=== PATIENT | female | born 1990 | race Two or more races ===

== ENCOUNTER 2017-09-23 11:21 | Inpatient (IN) | payer MEDICAID ==
[~2017-09-23] VITALS: Ht 172.7 cm; Wt 62.6 kg
--- NOTE | 2017-09-23 12:01 | Emergency Room Report ---
History of Present Illness General Chief Complaint: Fever Source: Patient Present Illness HPI 27-year-old female presenting with fever chills cough abdominal pain. Patient states that she had a MAXIMUM TEMPERATURE of 104. Aleve. Also had one episode vomiting. Also complaining of right upper quadrant pain. Sharp. Intermittent. Also has had a nonproductive cough. No sick contacts or recent travel Allergies: Coded Allergies: No Known Allergies (Unverified , 09/23/17) Patient History Past Medical History: see triage record Past Surgical History: none Pertinent Family History: none Last Menstrual Period: 09/16/17 Now: No : 1 Para: 1 Reviewed Nursing Documentation: PMH: Agreed, PSxH: Agreed Nursing Documentation-PMH Past Medical History: No Stated History Review of Systems All Other Systems: negative except mentioned in HPI Physical Exam Vital Signs Date Time Temp Pulse Resp B/P (MAP) Pulse Ox O2 Delivery O2 Flow Rate FiO2 09/23/17 11:26 102.6 125 20 112/66 96 Room Air 102.6 Sp02 EP Interpretation: reviewed, normal General Appearance: alert, GCS 15, non-toxic, mild distress Head: normocephalic, atraumatic Eyes: bilateral eye normal inspection, bilateral eye PERRL, bilateral eye EOMI ENT: normal ENT inspection, normal pharynx, normal voice, moist mucus membranes Neck: normal inspection, full range of motion, supple Respiratory: normal inspection, lungs clear, normal breath sounds, no respiratory distress, no retraction, no wheezing, speaking full sentences, chest symmetrical Cardiovascular #1: normal inspection, regular rate, rhythm, no edema, normal capillary refill Cardiovascular #2: 2+ radial (R), 2+ radial (L) Gastrointestinal: other - ruq tenderness no guarding or rebound no other abd tenderness Musculoskeletal: normal inspection, back normal, normal range of motion, non- tender Neurologic: normal inspection, alert, oriented x3, responsive, motor strength/ tone normal, sensory intact, normal gait, speech normal Psychiatric: normal inspection, judgement/insight normal, memory normal Skin: normal inspection, normal color, no rash, warm/dry, well hydrated, normal turgor Medical Decision Making Diagnostic Impression: Primary Impression: Fever Additional Impressions: Cholelithiasis URI (upper respiratory infection) Intractable abdominal pain ER Course 27-year-old female with abdominal pain fever, cough Differential Diagnosis: Gastritis, gastroenteritis, cholecystitis, UTI/pyelo Plan: Basic labs, ua, sonogram, x-ray ER course: Patient has remained stable during ED stay. Right upper quadrant sonogram performed - stones, no signs cholecystitis labs - no LFT elevation patients fever improved continues to have intractable abd pain, given 2 doses morphine Disposition: Patient is to be admitted to med surg DW Dr Garcia who is covering for Dr Ceron Please note that this Emergency Department Report was dictated using [employer] technology software, occasionally this can lead to erroneous entry secondary to interpretation by the dictation equipment Rhythm Strip EP Interpretation: Yes Rate: 97 Rhythm: NSR, no PVCs, no ectopy Chest X-ray CXR: Ordered: Yes 1 view Indication: Cough EP interpretation: Yes Interpretation: No consolidation, no effusion, no PTX, no acute cardiopulmonary disease Impression: No acute disease Electronically signed by Farnaz Fisher MD Laboratory Tests Test 09/23/17 12:03 09/23/17 12:15 Urine Color Yellow Urine Appearance Clear Urine pH 6 (4.5-8.0) Urine Specific [place] 1.010 (1.005-1.035) Urine Protein 1+ (NEGATIVE) H Urine Glucose (UA) Negative (NEGATIVE) Urine Ketones 2+ (NEGATIVE) H Urine Occult Blood Negative (NEGATIVE) Urine Nitrite Negative (NEGATIVE) Urine Bilirubin Negative (NEGATIVE) Urine Urobilinogen Normal MG/DL (0.0-1.0) Urine Leukocyte Esterase 1+ (NEGATIVE) H Urine RBC 0-2 /HPF (0 - 2) Urine WBC 2-4 /HPF (0 - 2) Urine Squamous Epithelial Cells Few /LPF (NONE/OCC) Urine Bacteria Few /HPF (NONE) Urine HCG, Qualitative Negative (NEGATIVE) White Blood Count 5.2 K/UL (4.8-10.8) Red Blood Count 5.09 M/UL (4.20-5.40) Hemoglobin 15.0 G/DL (12.0-16.0) Hematocrit 44.4 % (37.0-47.0) Mean Corpuscular Volume 87 FL (80-99) Mean Corpuscular Hemoglobin 29.4 PG (27.0-31.0) Mean Corpuscular Hemoglobin Concent 33.8 G/DL (32.0-36.0) Red Cell Distribution Width 11.5 % (11.6-14.8) L Platelet Count 226 K/UL (150-450) Mean Platelet Volume 7.2 FL (6.5-10.1) Neutrophils (%) (Auto) 82.6 % (45.0-75.0) H Lymphocytes (%) (Auto) 5.1 % (20.0-45.0) L Monocytes (%) (Auto) 10.4 % (1.0-10.0) H Eosinophils (%) (Auto) 0.0 % (0.0-3.0) Basophils (%) (Auto) 1.8 % (0.0-2.0) Sodium Level 138 MMOL/L (136-145) Potassium Level 4.0 MMOL/L (3.5-5.1) Chloride Level 103 MMOL/L (98-107) Carbon Dioxide Level 26 MMOL/L (21-32) Anion Gap 9 mmol/L (5-15) Blood Urea Nitrogen 7 mg/dL (7-18) Creatinine 1.0 MG/DL (0.55-1.30) Estimate Glomerular Filtration Rate > 60 mL/min (>60) Glucose Level 110 MG/DL (74-106) H Calcium Level 8.7 MG/DL (8.5-10.1) Total Bilirubin 0.3 MG/DL (0.2-1.0) Aspartate Amino Transferase (AST) 22 U/L (15-37) Alanine Aminotransferase (ALT) 21 U/L (12-78) Alkaline Phosphatase 83 U/L (46-116) Total Protein 8.0 G/DL (6.4-8.2) Albumin 4.0 G/DL (3.4-5.0) Globulin 4.0 g/dL Albumin/Globulin Ratio 1.0 (1.0-2.7) Lipase 174 U/L (73-393) CT/MRI/US Diagnostic Results CT/MRI/US Diagnostic Results : Imaging Test Ordered: US gallbladder Impression Findings: Gallbladder demonstrates a large stone in the neck. The wall is not thickened and there is no pericholecystic fluid. However, technologist reports sonographic Campbell's sign as being positive. Common bile duct measures 3 mm in diameter. No intrahepatic biliary ductal dilatation. Liver demonstrates normal echogenicity, no focal abnormality. Portal vein and hepatic veins are patent. Pancreas is unremarkable. Spleen is unremarkable. Left kidney measures 10.3 cm in length. Right kidney measures 11.5 cm length. Both kidneys demonstrate normal echogenicity. There is no hydronephrosis. Left kidney demonstrates a small cyst . Non-aneurysmal abdominal aorta . Impression: Cholelithiasis. Positive sonographic Campbell's sign raises concern for acute cholecystitis. Consider nuclear medicine hepatobiliary scan for further evaluation Negative for dilated ducts Incidental findings small left renal cyst Last Vital Signs Date Time Temp Pulse Resp B/P (MAP) Pulse Ox O2 Delivery O2 Flow Rate FiO2 09/23/17 11:26 102.6 125 20 112/66 96 Room Air 102.6 Disposition: ADMITTED INPATIENT Condition: Serious Scripts Acetaminophen* (ACETAMINOPHEN EXTRA STRENGTH*) 500 Mg Tablet 500 MG ORAL Q8H Y for Fever/Headache/Mild Pain, #30 TAB Prov: Farnaz Fisher M.D. 09/23/17 Farnaz Fisher M.D. Sep 23, 2017 12:00
[2017-09-23 12:13] LABS: APPEARANCE,URINE CLEAR; BILIRUBIN, URINE NEGATIVE (NEGATIVE); GLUCOSE, URINE (UA) NEGATIVE (NEGATIVE); KETONES,URINE 2+ (NEGATIVE); LEUKOCYTE ESTERASE ,URINE 1+ (NEGATIVE); NITRITE,URINE NEGATIVE (NEGATIVE); PH,URINE 6 (4.5-8.0); PROTEIN,URINE 1+ (NEGATIVE); UROBILINOGEN,URINE NORMAL MG/DL (0.0-1.0)
[2017-09-23 12:15] LABS: COLOR,URINE YELLOW
[2017-09-23 12:17] VITALS: BP 112/66
[2017-09-23] MEDS ORDERED: Morphine Sulfate 4mg/ml Inj IVP ONE ×2 (12:45→13:30)
[2017-09-23 13:16] LABS: BASOPHILS % (AUTO) 1.8 % (0.0-2.0); HEMATOCRIT 44.4 % (37.0-47.0); LYMPHOCYTES % (AUTO) 5.1 % (20.0-45.0); MEAN CORPUSCULAR VOLUME 87 FL (80-99); MONOCYTES % (AUTO) 10.4 % (1.0-10.0); NEUTROPHILS % (AUTO) 82.6 % (45.0-75.0); PLATELET COUNT 226 K/UL (150-450); RED BLOOD COUNT 5.09 M/UL (4.20-5.40); RED CELL DISTRIBUTION WIDTH 11.5 % (11.6-14.8); WHITE BLOOD COUNT 5.2 K/UL (4.8-10.8)
[2017-09-23] MEDS ORDERED: ACETAMINOPHEN500 M3 ORAL (13:29)
[2017-09-23 13:39] LABS: ANION GAP 9 mmol/L (5-15); BLOOD UREA NITROGEN 7 mg/dL (7-18); CALCIUM 8.7 MG/DL (8.5-10.1); CARBON DIOXIDE 26 MMOL/L (21-32); CHLORIDE 103 MMOL/L (98-107); SODIUM 138 MMOL/L (136-145)
[2017-09-23 13:43] LABS: ALANINE AMINOTRANSFERASE 21 U/L (12-78); ALKALINE PHOSPHATASE 83 U/L (46-116); ASPARTATE AMINO TRANSFERASE 22 U/L (15-37); BILIRUBIN,TOTAL 0.3 MG/DL (0.2-1.0)
--- NOTE | 2017-09-23 13:57 | Diagnostic Imaging Report ---
Indication: Metacarpal pain, nausea, vomiting Technique: Wright-scale and duplex images of the upper abdomen were obtained Comparison: none Findings: Gallbladder demonstrates a large stone in the neck. The wall is not thickened and there is no pericholecystic fluid. However, technologist reports sonographic Campbell's sign as being positive. Common bile duct measures 3 mm in diameter. No intrahepatic biliary ductal dilatation. Liver demonstrates normal echogenicity, no focal abnormality. Portal vein and hepatic veins are patent. Pancreas is unremarkable. Spleen is unremarkable. Left kidney measures 10.3 cm in length. Right kidney measures 11.5 cm length. Both kidneys demonstrate normal echogenicity. There is no hydronephrosis. Left kidney demonstrates a small cyst . Non-aneurysmal abdominal aorta . Impression: Cholelithiasis. Positive sonographic Campbell's sign raises concern for acute cholecystitis. Consider nuclear medicine hepatobiliary scan for further evaluation Negative for dilated ducts Incidental findings small left renal cyst
[2017-09-23] MEDS ORDERED: Mylanta II UD 30ml ORAL PRN (14:15)
[2017-09-23] MEDS ORDERED: Acetaminophen 650 MG SUPP RECTAL PRN (14:15)
[2017-09-23] MEDS ORDERED: Milk of Magnesia 30ml Ud ORAL PRN (14:15)
[2017-09-23] MEDS ORDERED: Morphine Sulfate 2mg/ml Inj IVP PRN (14:15)
[2017-09-23 14:16] VITALS: BP 109/61
--- NOTE | 2017-09-23 14:29 | Emergency Room Report ---
History of Present Illness General Chief Complaint: Fever Source: Patient Present Illness Allergies: Coded Allergies: No Known Allergies (Unverified , 09/23/17) Patient History Last Menstrual Period: 09/16/17 Now: No : 1 Para: 1 Nursing Documentation-[facility] Past Medical History: No Stated History Physical Exam Vital Signs Date Time Temp Pulse Resp B/P (MAP) Pulse Ox O2 Delivery O2 Flow Rate FiO2 09/23/17 11:26 102.6 125 20 112/66 96 Room Air 102.6 Medical Decision Making Diagnostic Impression: Primary Impression: Fever Additional Impressions: URI (upper respiratory infection) Intractable abdominal pain Cholelithiasis ER Course 27-year-old female signed out to me by Dr. Fisher Official sonogram shows large stone in neck of gallbladder However no pericholecystic fluid, no wall thickening Positive sonographic Campbell's Coags, type and screen sent Given dose of Zosyn antibiotic Dr. Hopper consult for possible cholecystitis at 230pm Last Vital Signs Date Time Temp Pulse Resp B/P (MAP) Pulse Ox O2 Delivery O2 Flow Rate FiO2 09/23/17 14:16 98.7 81 16 109/61 96 Room Air 98.7 Status: improved Disposition: ADMITTED INPATIENT Condition: Serious Scripts Acetaminophen* (ACETAMINOPHEN EXTRA STRENGTH*) 500 Mg Tablet 500 MG ORAL Q8H Y for Fever/Headache/Mild Pain, #30 TAB Prov: Farnaz Fisher M.D. 09/23/17 Patient Instructions: Upper Respiratory Infection, Adult, [id number], Cholelithiasis, [id number], Fever, Adult, [id number] NACHO LUIS M.D. Sep 23, 2017 14:29
--- NOTE | 2017-09-23 14:50 | GI Initial Consult Note ---
History of Present Illness General Date patient seen: Sep 23, 2017 Time patient seen: 14:38 Reason for Hospitalization: Fever Referring physician: GHASSAN GIMENEZ Reason for Consultation: ABDOMINAL PAIN Present Illness HPI 27-year-old female presenting with fever chills cough abdominal pain. Patient states that she had a MAXIMUM TEMPERATURE of 104. Aleve. Also had one episode vomiting. Also complaining of right upper quadrant pain. Sharp. Intermittent. Also has had a nonproductive cough. No sick contacts or recent travel. GI consulted for abdominal pain. Pt seen in ED alongside primary team. Awake , A&Ox4 NAD with no active s/sx of N/V/D. Reported one ep of emesis this morning, denied any hematemesis or coffee grounds. RUQ abdominal pain, with tenderness, positive Campbell's sign. Tolerable pain at this time. Denies tobacco/ETOH/IVDA drug use. HCG negative. Abdominal U/S reviewed >> Cholelithiasis. Positive sonographic Campbell's sign raises concern for acute cholecystitis. Negative for dilated ducts. Incidental findings small left renal cyst. Patient now pending HIDA. Labs revealed shows elevated neutrophil count, otherwise unremarkable. VSS. Home Meds Active Scripts Acetaminophen* (ACETAMINOPHEN EXTRA STRENGTH*) 500 Mg Tablet, 500 MG ORAL Q8H Y for Fever/Headache/Mild Pain, #30 TAB Prov:Farnaz Fisher M.D. 09/23/17 Med list reviewed/reconciled: Yes Allergies: Coded Allergies: No Known Allergies (Unverified , 09/23/17) Patient History History Provided By: Patient PMH Narrative denies any Social History: Denies: smoking, alcohol use, drug use, other Review of Systems All Other Systems: negative except mentioned in HPI Physical Exam Vital Signs Date Time Temp Pulse Resp B/P (MAP) Pulse Ox O2 Delivery O2 Flow Rate FiO2 09/23/17 11:26 102.6 125 20 112/66 96 Room Air 102.6 Sp02 EP Interpretation: reviewed, normal Labs Laboratory Tests Test 09/23/17 12:03 09/23/17 12:15 Urine Color Yellow Urine Appearance Clear Urine pH 6 (4.5-8.0) Urine Specific [place] 1.010 (1.005-1.035) Urine Protein 1+ (NEGATIVE) H Urine Glucose (UA) Negative (NEGATIVE) Urine Ketones 2+ (NEGATIVE) H Urine Occult Blood Negative (NEGATIVE) Urine Nitrite Negative (NEGATIVE) Urine Bilirubin Negative (NEGATIVE) Urine Urobilinogen Normal MG/DL (0.0-1.0) Urine Leukocyte Esterase 1+ (NEGATIVE) H Urine RBC 0-2 /HPF (0 - 2) Urine WBC 2-4 /HPF (0 - 2) Urine Squamous Epithelial Cells Few /LPF (NONE/OCC) Urine Bacteria Few /HPF (NONE) Urine HCG, Qualitative Negative (NEGATIVE) White Blood Count 5.2 K/UL (4.8-10.8) Red Blood Count 5.09 M/UL (4.20-5.40) Hemoglobin 15.0 G/DL (12.0-16.0) Hematocrit 44.4 % (37.0-47.0) Mean Corpuscular Volume 87 FL (80-99) Mean Corpuscular Hemoglobin 29.4 PG (27.0-31.0) Mean Corpuscular Hemoglobin Concent 33.8 G/DL (32.0-36.0) Red Cell Distribution Width 11.5 % (11.6-14.8) L Platelet Count 226 K/UL (150-450) Mean Platelet Volume 7.2 FL (6.5-10.1) Neutrophils (%) (Auto) 82.6 % (45.0-75.0) H Lymphocytes (%) (Auto) 5.1 % (20.0-45.0) L Monocytes (%) (Auto) 10.4 % (1.0-10.0) H Eosinophils (%) (Auto) 0.0 % (0.0-3.0) Basophils (%) (Auto) 1.8 % (0.0-2.0) Sodium Level 138 MMOL/L (136-145) Potassium Level 4.0 MMOL/L (3.5-5.1) Chloride Level 103 MMOL/L (98-107) Carbon Dioxide Level 26 MMOL/L (21-32) Anion Gap 9 mmol/L (5-15) Blood Urea Nitrogen 7 mg/dL (7-18) Creatinine 1.0 MG/DL (0.55-1.30) Estimat Glomerular Filtration Rate > 60 mL/min (>60) Glucose Level 110 MG/DL (74-106) H Calcium Level 8.7 MG/DL (8.5-10.1) Total Bilirubin 0.3 MG/DL (0.2-1.0) Aspartate Amino Transf (AST/SGOT) 22 U/L (15-37) Alanine Aminotransferase (ALT/SGPT) 21 U/L (12-78) Alkaline Phosphatase 83 U/L (46-116) Total Protein 8.0 G/DL (6.4-8.2) Albumin 4.0 G/DL (3.4-5.0) Globulin 4.0 g/dL Albumin/Globulin Ratio 1.0 (1.0-2.7) Lipase 174 U/L (73-393) General Appearance: well appearing, no apparent distress, alert Head: normocephalic EENT: PERRL/EOMI, normal ENT inspection Neck: supple Respiratory: normal breath sounds, no respiratory distress Cardiovascular: normal rate Gastrointestinal: normal inspection, non tender, soft, normal bowel sounds, non -distended Rectal: deferred Genitourinary: no CVA tenderness Musculoskeletal: normal inspection, back normal Neurologic: normal inspection, alert, oriented x3, responsive Psychiatric: normal inspection, judgement/insight normal, memory normal Skin: normal inspection, normal color, no rash, warm/dry, palpation normal, well hydrated Lymphatic: normal inspection, no adenopathy Current Medications Current Medications Medications (Trade) Dose Ordered Sig/Saul Route PRN Reason Start Time Stop Time Status Last Admin Dose Admin Acetaminophen (Tylenol) 650 mg Q4H PRN ORAL Mild Pain (Pain Scale 1-3) 09/23/17 14:15 10/23/17 14:14 UNV Acetaminophen (Tylenol) 650 mg Q4H PRN ORAL fever 09/23/17 14:15 10/23/17 14:14 UNV Acetaminophen (Tylenol) 650 mg Q4H PRN RECTAL fever 09/23/17 14:15 10/23/17 14:14 UNV Al Hydroxide/Mg Hydroxide (Mylanta II) 30 ml Q6H PRN ORAL dyspepsia 09/23/17 14:15 10/23/17 14:14 UNV Bisacodyl (Dulcolax) 10 mg HSPRN PRN RECTAL Constipation 09/23/17 14:15 10/23/17 14:14 UNV Dextrose (Dextrose 50%) STAT PRN IV Hypoglycemia 09/23/17 14:15 10/23/17 14:14 UNV Dextrose/ Electrolytes 1,000 ml @ 125 mls/hr Q8H IV 09/23/17 15:11 10/23/17 15:10 UNV Diphenhydramine HCl (Benadryl) 25 mg Q6H PRN ORAL Itching/Pruritis 09/23/17 14:15 10/23/17 14:14 UNV Docusate Sodium (Colace) 100 mg EVERY 12 HOURS ORAL 09/23/17 21:00 10/23/17 20:59 UNV Heparin Sodium (Porcine) (Heparin 5000 units/ml) 5,000 units EVERY 12 HOURS SUBQ 09/23/17 21:00 10/23/17 20:59 UNV Magnesium Hydroxide (Mom) 30 ml HSPRN PRN ORAL Constipation 09/23/17 14:15 10/23/17 14:14 UNV Morphine Sulfate (Morphine Sulfate) 2 mg Q3H PRN IVP Moderate Pain (Pain Scale 4-6) 09/23/17 14:15 09/30/17 14:14 UNV Morphine Sulfate (Morphine Sulfate) 4 mg Q3H PRN IVP Severe Pain (Pain Scale 7-10) 09/23/17 14:15 09/30/17 14:14 UNV Ondansetron HCl (Zofran) 4 mg Q6H PRN IVP Nausea & Vomiting 09/23/17 14:15 10/23/17 14:14 UNV Pantoprazole (Protonix) 40 mg DAILY IV 09/24/17 09:00 10/24/17 08:59 UNV Piperacillin Sod/ Tazobactam Sod 3.375 gm/Sodium Chloride 110 ml @ 220 mls/hr Q6H IVPB 09/23/17 14:30 09/30/17 14:29 UNV Zolpidem Tartrate (Ambien) 5 mg HSPRN PRN ORAL Insomnia 09/23/17 14:15 09/30/17 14:14 UNV GI: Plan Problems: (1) Cholelithiasis (2) Intractable abdominal pain (3) Biliary colic Plan abdominal U/S reviewed >> - Cholelithiasis. Gallbladder demonstrates a large stone in the neck. - Positive sonographic Campbell's sign raises concern for acute cholecystitis. - negative for dilated ducts LFTs WNL HCG negative fu HIDA scan maintain NPO + IVFs ppi pain mgmt zofran prn fu surgical recs for possible cholecystectomy. Discussed with Dr. Escalante. Thank you for this patient referral, we will follow. Rica Rollins N.P. Sep 23, 2017 14:50
--- NOTE | 2017-09-23 15:14 | Diagnostic Imaging Report ---
Indication: Reason For Exam: COUGH Technique: One view of the chest Comparison: none Findings: Lungs and pleural spaces are clear. Heart size is normal Impression: No acute process
[2017-09-23] MEDS ORDERED: D5 1/2NS w/KCl 20mEq 1,000 ML IV SCH (16:30)
[2017-09-23] MEDS: Morphine Sulfate 4mg/ml Inj IVP PRN ×2 (17:28→21:07)
[2017-09-23] MEDS ORDERED: Morphine Sulfate 2mg/ml Inj IVP ONE (17:30)
[2017-09-23] MEDS ORDERED: Zosyn 3.375gm inj ONE ×2 (17:49→23:41)
[2017-09-23] MEDS: Piperacillin/Tazobactam 3.375 GM in NS 110 ML IVPB SCH ×2 (17:50→23:47)
[2017-09-23] MEDS ORDERED: IBUPROFEN600 MG ORAL (18:02)
[2017-09-23] MEDS: D5 1/2NS w/KCl 20mEq 1,000 ML IV SCH (19:57)
[2017-09-23 20:56] VITALS: BP 110/72
[2017-09-23] MEDS ORDERED: Heparin 5000 units/ml inj SUBQ SCH (21:00)
[2017-09-23] MEDS: Docusate 100mg cap ORAL SCH (21:00)
--- NOTE | 2017-09-23 21:01 | Consultation ---
DATE OF CONSULTATION: 09/23/2017 PREOPERATIVE CONSULTATION CONSULTING PHYSICIAN: Stella Hopper M.D. REQUESTING PHYSICIAN: ER physician. REASON FOR CONSULTATION: Abdominal pain. HISTORY OF PRESENT ILLNESS: This is a 27-year-old female who presented with abdominal pain since this morning. The pain is located at right upper quadrant, crampy with radiation to her back. It has been associated with nausea and vomiting. She claimed that since last night, she has been having fever. She had a mild cough. She denied dysuria or frequency. She denied diarrhea. She claims that she has been having pain at the right upper quadrant of the abdomen off and on in the last three years, especially after exercise and after eating greasy food. She denies any history of jaundice. PAST MEDICAL HISTORY: She denies allergies, asthma, diabetes, hypertension, cardiac or renal diseases. PAST SURGICAL HISTORY: x1. MEDICATIONS: None. SOCIAL HISTORY: The patient is a 27-year-old, female, single, mother of one child. She works as a nanny. Denies smoking and drinking. REVIEW OF SYSTEMS: Noncontributory. PHYSICAL EXAMINATION: GENERAL: The patient appeared to be well-developed and well-nourished, 27-year-old, female, lying on the gurney, complaining of abdominal pain. HEENT: Head is normocephalic and atraumatic. Eyes, pupils are equal, round, and reactive to light. Mouth is clear. NECK: There is no palpable thyromegaly or adenopathy. CHEST: Clear to auscultation and percussion. HEART: There is no gallop or murmur. S1 and S2 are within normal limits. ABDOMEN: Soft and flat with tenderness at right upper quadrant. There is no palpable organomegaly and bowel sounds are audible. She has a scar of the transverse suprapubic incision. GENITAL: Normal. EXTREMITIES: Within normal limits. LABORATORY AND DIAGNOSTIC DATA: CBC has shown WBCs with mild left shift. Chemistry is within normal limits. Total bilirubin is 0.3, alkaline phosphatase 83. Ultrasound of the abdomen has shown large stone impacted in the neck of the gallbladder. ASSESSMENT: Cholecystitis and cholelithiasis. PLAN: The patient will be admitted to hospital and being started on conservative treatment. If she continues having pain, she will undergo laparoscopy cholecystectomy, possible open cholecystectomy. This has been explained to the patient. She understood and agreed. Stella Hopper M.D. DR: OLAYINKA JOB#: [id number] CC:
[2017-09-23] MEDS: Zolpidem 5mg tab ORAL PRN (22:38)
[2017-09-24] VITALS (18 sets, daily range): BP systolic 94–115; BP diastolic 52–75
[2017-09-24] MEDS: Morphine Sulfate 4mg/ml Inj IVP PRN ×4 (00:38→14:18)
[2017-09-24] MEDS: D5 1/2NS w/KCl 20mEq 1,000 ML IV SCH ×3 (05:52→22:03)
[2017-09-24 07:36] LABS: BASOPHILS % (AUTO) 1.3 % (0.0-2.0); HEMATOCRIT 40.9 % (37.0-47.0); HEMOGLOBIN 13.8 G/DL (12.0-16.0); LYMPHOCYTES % (AUTO) 17.3 % (20.0-45.0); MEAN CORPUSCULAR VOLUME 89 FL (80-99); MONOCYTES % (AUTO) 9.7 % (1.0-10.0); NEUTROPHILS % (AUTO) 71.7 % (45.0-75.0); PLATELET COUNT 186 K/UL (150-450); RED BLOOD COUNT 4.61 M/UL (4.20-5.40); RED CELL DISTRIBUTION WIDTH 11.9 % (11.6-14.8); WHITE BLOOD COUNT 4.2 K/UL (4.8-10.8)
[2017-09-24 07:44] LABS: ALANINE AMINOTRANSFERASE 21 U/L (12-78); ALBUMIN 3.3 G/DL (3.4-5.0); ALBUMIN/GLOBULIN RATIO 0.9 (1.0-2.7); ALKALINE PHOSPHATASE 70 U/L (46-116); ANION GAP 7 mmol/L (5-15); ASPARTATE AMINO TRANSFERASE 25 U/L (15-37); BILIRUBIN,TOTAL 0.2 MG/DL (0.2-1.0); BLOOD UREA NITROGEN 7 mg/dL (7-18); CALCIUM 7.8 MG/DL (8.5-10.1); CARBON DIOXIDE 26 MMOL/L (21-32); CHLORIDE 106 MMOL/L (98-107); CREATININE 0.9 MG/DL (0.55-1.30); POTASSIUM 4.3 MMOL/L (3.5-5.1); SODIUM 139 MMOL/L (136-145)
[2017-09-24] MEDS ORDERED: Glycopyrrolate 0.2mg/ml 1ml Vial ONE (08:00)
[2017-09-24] MEDS ORDERED: Sterile Water Irrig 1000ml IRRIG ONE (08:00)
[2017-09-24] MEDS ORDERED: Zemuron 50mg/5ml Inj IV ONE (08:00)
[2017-09-24] MEDS ORDERED: NS Irrig 1000ml ONE (08:00)
[2017-09-24] MEDS ORDERED: Ketorolac 30mg Inj ONE (08:00)
[2017-09-24] MEDS ORDERED: Dexamethasone 4mg/ml vial ONE (08:00)
[2017-09-24] MEDS ORDERED: fentaNYL 100 mcg/2 mL IV ONE (08:00)
[2017-09-24] MEDS ORDERED: Neostigmine 1mg/ml 10ml Inj ONE ×2 (08:00→16:32)
[2017-09-24] MEDS ORDERED: LR 1000ml ONE (08:00)
[2017-09-24] MEDS ORDERED: Lidocaine 1% MPF 10mg/ml 5ml ONE (08:00)
[2017-09-24] MEDS ORDERED: Propofol 200mg/20ml IV ONE (08:00)
[2017-09-24] MEDS: Piperacillin/Tazobactam 3.375 GM in NS 110 ML IVPB SCH ×3 (08:30→23:43)
[2017-09-24] MEDS ORDERED: Pantoprazole Inj IV SCH (09:00)
--- NOTE | 2017-09-24 09:07 | Diagnostic Imaging Report ---
Indications: 27-year-old female with gallstones, right upper quadrant pain, abdominal pain Technique: IV administration 5.5 mCi 99 M technetium Choletec. Serial images obtained over the abdomen for 2 1/2 hours Comparison: Reference made to abdominal ultrasound of earlier the same day Findings: Prompt tracer uptake within the liver. Extrahepatic bile ducts are seen at 10 minutes. No excretion into the duodenum, at 150 minutes. Gallbladder visualized at 19 minutes. Delayed images taken 16 hours postinjection demonstrate tracer within small bowel as well as reflux into the stomach. There is considerable residual tracer within the distal distended gallbladder but no residual hepatic retention of tracer Impression: Patent cystic duct, negative for acute cholecystitis No tracer seen to enter the duodenum after after 150 minutes. Per technologist, patient received 4 mg of morphine prior to the scan and another 4 mg during the scan for pain. Findings presumably represent sphincter of Cristhian spasm secondary to such, particularly in view of normal caliber bile ducts on recent ultrasound. Also, delayed images do demonstrate passage of tracer into the GI tract, indicating that the common bile duct is patent. Nonetheless, correlation with liver function tests is recommended
[2017-09-24] MEDS: Docusate 100mg cap ORAL SCH ×2 (09:10→22:03)
--- NOTE | 2017-09-24 12:33 | History and Physical ---
History of Present Illness General Date patient seen: Sep 24, 2017 Time patient seen: 12:33 Reason for Hospitalization: Fever, abd pain, nausea/vomiting Present Illness HPI 27y/o female with no sig pmh of presents with fevers/chills, abd pain, nausea/ vomiting. Pt states she has been having fevers and cough the past 1-2 days. Then yesterday morning had sudden onset RUQ abd pain with associated nausea/ vomiting. Describes pain as sharp and intermittent. One episode of emesis which was non-bloody, non-billious. Denies chest pain, SOB, d/c, dysuria. Has never had this type of pain before. Denies smoking, alcohol and drug use. In ED, pt had fevers up to 102. U/S abd w/ large stone in neck of gallbladder, positive sonographic Campbell's but no U/S e/o of acute cholecystitis. Surgery consulted. Given IVFs, morphine, zofran, and zosyn in ED. Allergies: Coded Allergies: No Known Allergies (Unverified , 09/23/17) Medication History Scheduled Ibuprofen* (Motrin*), 200 MG ORAL FOUR TIMES A DAY, (Reported) Scheduled PRN Acetaminophen* (Acetaminophen Extra Strength*), 500 MG ORAL Q8H PRN for Fever/ Headache/Mild Pain Patient History History Provided By: Patient, Medical Record Healthcare decision maker Lavinia Carr Resuscitation status Full Code Advanced Directive on File Past Medical/Surgical History Past Medical/Surgical History: (1) No significant past medical history (2) C-seection x1 Social History Social History: (1) No significant social history Review of Systems Constitutional: Reports: chills, fever, malaise, weakness Eye: Reports: no symptoms ENT: Reports: no symptoms Respiratory: Reports: cough Cardiovascular: Reports: no symptoms Gastrointestinal: Reports: abdominal pain, nausea, vomiting Genitourinary: Reports: no symptoms Musculoskeletal: Reports: no symptoms Skin: Reports: no symptoms Psychiatric: Reports: no symptoms Neurological: Reports: no symptoms Endocrine: Reports: no symptoms Hematologic/Lymphatic: Reports: no symptoms All Other Systems: negative except mentioned in HPI Physical Exam Physical Exam Narrative General: alert, cooperative, no distress, appears stated age Head: normocephalic, without obvious abnormality, atraumatic Eyes: conjunctivae/corneas clear. PERRL, EOM's intact Throat: lips, mucosa, and tongue normal. MMM Neck: supple, symmetrical, trachea midline, and no JVD Lungs: clear to auscultation bilaterally Heart: regular rate and rhythm, S1, S2 normal, no murmur, click, rub or gallop Abdomen: soft, +TTP of RUQ, +Campbell's sign, non-distended, bowel sounds normal; no masses or organomegaly Extremities: extremities normal, atraumatic, no cyanosis or edema Pulses: 2+ and symmetric Skin: skin color, texture, turgor normal; no rashes or lesions Neurologic: grossly normal, no focal deficits Last 24 Hour Vital Signs Date Time Temp Pulse Resp B/P (MAP) Pulse Ox O2 Delivery O2 Flow Rate FiO2 09/24/17 07:18 100.1 09/24/17 06:35 100.1 100.1 09/24/17 04:00 102.4 104 19 101/65 94 102.4 09/24/17 04:00 94 Room Air 09/24/17 01:29 102.0 09/24/17 00:06 100.9 82 17 115/75 98 100.9 09/24/17 00:00 98 Room Air 09/23/17 23:46 101.0 09/23/17 20:56 97.9 64 16 110/72 98 97.9 09/23/17 20:00 96 Room Air 09/23/17 18:08 98.7 74 16 101/67 97 Room Air 98.7 09/23/17 14:43 98.7 09/23/17 14:16 98.7 81 16 109/61 96 Room Air 98.7 09/23/17 13:34 101.5 09/23/17 13:24 101.5 101.5 09/23/17 13:12 101.5 Intake and Output 09/23/17 09/24/17 19:00 07:00 Intake Total 1180 ml 900 ml Balance 1180 ml 900 ml Intake Oral 180 ml IV Total 1000 ml 900 ml # Voids 2 Laboratory Tests Test 09/23/17 18:04 09/24/17 06:50 Prothrombin Time 10.0 SEC (9.30-11.50) Prothromb Time International Ratio 1.0 (0.9-1.1) White Blood Count 4.2 K/UL (4.8-10.8) L Red Blood Count 4.61 M/UL (4.20-5.40) Hemoglobin 13.8 G/DL (12.0-16.0) Hematocrit 40.9 % (37.0-47.0) Mean Corpuscular Volume 89 FL (80-99) Mean Corpuscular Hemoglobin 29.9 PG (27.0-31.0) Mean Corpuscular Hemoglobin Concent 33.7 G/DL (32.0-36.0) Red Cell Distribution Width 11.9 % (11.6-14.8) Platelet Count 186 K/UL (150-450) Mean Platelet Volume 7.3 FL (6.5-10.1) Neutrophils (%) (Auto) 71.7 % (45.0-75.0) Lymphocytes (%) (Auto) 17.3 % (20.0-45.0) L Monocytes (%) (Auto) 9.7 % (1.0-10.0) Eosinophils (%) (Auto) 0.0 % (0.0-3.0) Basophils (%) (Auto) 1.3 % (0.0-2.0) Sodium Level 139 MMOL/L (136-145) Potassium Level 4.3 MMOL/L (3.5-5.1) Chloride Level 106 MMOL/L (98-107) Carbon Dioxide Level 26 MMOL/L (21-32) Anion Gap 7 mmol/L (5-15) Blood Urea Nitrogen 7 mg/dL (7-18) Creatinine 0.9 MG/DL (0.55-1.30) Estimat Glomerular Filtration Rate > 60 mL/min (>60) Glucose Level 113 MG/DL (74-106) H Calcium Level 7.8 MG/DL (8.5-10.1) L Magnesium Level 2.2 MG/DL (1.8-2.4) Total Bilirubin 0.2 MG/DL (0.2-1.0) Aspartate Amino Transf (AST/SGOT) 25 U/L (15-37) Alanine Aminotransferase (ALT/SGPT) 21 U/L (12-78) Alkaline Phosphatase 70 U/L (46-116) Total Protein 7.0 G/DL (6.4-8.2) Albumin 3.3 G/DL (3.4-5.0) L Globulin 3.7 g/dL Albumin/Globulin Ratio 0.9 (1.0-2.7) L Amylase Level 69 U/L (25-115) Microbiology Date/Time Source Procedure Growth Status 09/23/17 13:45 Nasal Nares Influenza Types A,B Antigen (NYA) - Final Complete Height (Feet): 5 Height (Inches): 1.00 Weight (Pounds): 138 Medications Current Medications Medications (Trade) Dose Ordered Sig/Saul Route PRN Reason Start Time Stop Time Status Last Admin Dose Admin Acetaminophen (Tylenol) 650 mg Q4H PRN ORAL fever 09/23/17 14:15 10/23/17 14:14 09/23/17 23:46 Acetaminophen (Tylenol) 650 mg Q4H PRN ORAL Mild Pain (Pain Scale 1-3) 09/23/17 14:15 10/23/17 14:14 Acetaminophen (Tylenol) 650 mg Q4H PRN RECTAL fever 09/23/17 14:15 10/23/17 14:14 Bisacodyl (Dulcolax) 10 mg HSPRN PRN RECTAL Constipation 09/23/17 14:15 10/23/17 14:14 Dextrose (Dextrose 50%) STAT PRN IV Hypoglycemia 09/23/17 14:15 10/23/17 14:14 Dextrose/ Electrolytes 1,000 ml @ 100 mls/hr Q10H IV 09/23/17 18:49 10/23/17 18:48 09/24/17 05:52 Diphenhydramine HCl (Benadryl) 25 mg Q6H PRN ORAL Itching/Pruritis 09/23/17 14:15 10/23/17 14:14 Docusate Sodium (Colace) 100 mg EVERY 12 HOURS ORAL 09/23/17 21:00 10/23/17 20:59 09/24/17 09:10 Magnesium Hydroxide (Mom) 30 ml HSPRN PRN ORAL Constipation 09/23/17 14:15 10/23/17 14:14 Morphine Sulfate (Morphine Sulfate) 2 mg Q3H PRN IVP Moderate Pain (Pain Scale 4-6) 09/23/17 14:15 09/30/17 14:14 Morphine Sulfate (Morphine Sulfate) 4 mg Q3H PRN IVP Severe Pain (Pain Scale 7-10) 09/23/17 14:15 09/30/17 14:14 09/24/17 11:36 Ondansetron HCl (Zofran) 4 mg Q6H PRN IVP Nausea & Vomiting 09/23/17 14:15 10/23/17 14:14 09/24/17 09:10 Pantoprazole (Protonix) 40 mg DAILY IV 09/24/17 09:00 10/24/17 08:59 09/24/17 09:10 Piperacillin Sod/ Tazobactam Sod 3.375 gm/Sodium Chloride 110 ml @ 27.5 mls/hr Q8H IVPB 09/23/17 16:30 09/30/17 16:29 09/24/17 09:10 Zolpidem Tartrate (Ambien) 5 mg HSPRN PRN ORAL Insomnia 09/23/17 14:15 09/30/17 14:14 09/23/17 22:38 Assessment/Plan Problem List: (1) Cholelithiasis Assessment & Plan: Concern for acute cholecystitis ICD Codes: K80.20 - Calculus of gallbladder without cholecystitis without obstruction SNOMED: 334321634 (2) Fever ICD Codes: R50.9 - Fever, unspecified SNOMED: 398347903 (3) Biliary colic ICD Codes: K80.50 - Calculus of bile duct without cholangitis or cholecystitis without obstruction SNOMED: 96247003 Status: stable Assessment/Plan Pt with fevers, RUQ abd pain, positive Campbell's sign and U/S with e/o gallstone in neck of gallbladder. Clinical picture concerning for acute cholecystitis Admit inpt GI and surgery consulted NPO IVFs Empiric zosyn given fevers to cover intra-abdominal pathology Check HIDA scan Possible plan for lap cholecystectomy if cont to be symptomatic Pain control, bowel regimen Nausea control Supportive care DVT ppx: SCDs, pt ambulatory FULL CODE D/w pt, GI, ER physician, RN regarding mgmt and dispo Myra Chase M.D. Sep 24, 2017 12:33
--- NOTE | 2017-09-24 14:23 | General Surgery Progress Note ---
General Surgery-Progress Note Subjective Symptoms: pain same Objective Last 24 Hour Vital Signs Date Time Temp Pulse Resp B/P (MAP) Pulse Ox O2 Delivery O2 Flow Rate FiO2 09/24/17 07:18 100.1 09/24/17 06:35 100.1 100.1 09/24/17 04:00 102.4 104 19 101/65 94 102.4 09/24/17 04:00 94 Room Air 09/24/17 01:29 102.0 09/24/17 00:06 100.9 82 17 115/75 98 100.9 09/24/17 00:00 98 Room Air 09/23/17 23:46 101.0 09/23/17 20:56 97.9 64 16 110/72 98 97.9 09/23/17 20:00 96 Room Air 09/23/17 18:08 98.7 74 16 101/67 97 Room Air 98.7 09/23/17 14:43 98.7 I&O Intake and Output 09/23/17 09/24/17 19:00 07:00 Intake Total 1180 ml 900 ml Balance 1180 ml 900 ml Intake Oral 180 ml IV Total 1000 ml 900 ml # Voids 2 Respiratory: clear Abdomen: soft, flat, tenderness, present bowel sounds Extremities: no tenderness Laboratory Tests Test 09/23/17 18:04 09/24/17 06:50 Prothrombin Time 10.0 SEC (9.30-11.50) Prothromb Time International Ratio 1.0 (0.9-1.1) White Blood Count 4.2 K/UL (4.8-10.8) L Red Blood Count 4.61 M/UL (4.20-5.40) Hemoglobin 13.8 G/DL (12.0-16.0) Hematocrit 40.9 % (37.0-47.0) Mean Corpuscular Volume 89 FL (80-99) Mean Corpuscular Hemoglobin 29.9 PG (27.0-31.0) Mean Corpuscular Hemoglobin Concent 33.7 G/DL (32.0-36.0) Red Cell Distribution Width 11.9 % (11.6-14.8) Platelet Count 186 K/UL (150-450) Mean Platelet Volume 7.3 FL (6.5-10.1) Neutrophils (%) (Auto) 71.7 % (45.0-75.0) Lymphocytes (%) (Auto) 17.3 % (20.0-45.0) L Monocytes (%) (Auto) 9.7 % (1.0-10.0) Eosinophils (%) (Auto) 0.0 % (0.0-3.0) Basophils (%) (Auto) 1.3 % (0.0-2.0) Sodium Level 139 MMOL/L (136-145) Potassium Level 4.3 MMOL/L (3.5-5.1) Chloride Level 106 MMOL/L (98-107) Carbon Dioxide Level 26 MMOL/L (21-32) Anion Gap 7 mmol/L (5-15) Blood Urea Nitrogen 7 mg/dL (7-18) Creatinine 0.9 MG/DL (0.55-1.30) Estimat Glomerular Filtration Rate > 60 mL/min (>60) Glucose Level 113 MG/DL (74-106) H Calcium Level 7.8 MG/DL (8.5-10.1) L Magnesium Level 2.2 MG/DL (1.8-2.4) Total Bilirubin 0.2 MG/DL (0.2-1.0) Aspartate Amino Transf (AST/SGOT) 25 U/L (15-37) Alanine Aminotransferase (ALT/SGPT) 21 U/L (12-78) Alkaline Phosphatase 70 U/L (46-116) Total Protein 7.0 G/DL (6.4-8.2) Albumin 3.3 G/DL (3.4-5.0) L Globulin 3.7 g/dL Albumin/Globulin Ratio 0.9 (1.0-2.7) L Amylase Level 69 U/L (25-115) Assessment Additional Comments cholecystitis & cholelithiasis Plan Additional Comments Lap Ros this PM WILLARD ZAVALA Sep 24, 2017 14:23
[2017-09-24] MEDS ORDERED: Bupivacaine 0.25% Inj 30ml INJ ONE (16:31)
[2017-09-24] MEDS ORDERED: NeoSporin Gu Irrig 1ml Amp IRRIG ONE (16:32)
[2017-09-24] MEDS ORDERED: Bacitracin 50000 Units Vial ONE (16:32)
--- NOTE | 2017-09-24 16:33 | Pre-Procedure Note/Attestation ---
Pre-Procedure Note/Attestation Complete Prior to Procedure Planned Procedure: not applicable Procedure Narrative: Laparoscopic cholecystectomy possible open cholecystectomy Indications for Procedure Pre-Operative Diagnosis: cholecystitis & cholelithiasis Attestation I attest that I discussed the nature of the procedure; its benefits; risks and complications; and alternatives (and the risks and benefits of such alternatives ), prior to the procedure, with the patient (or the patient's legal sales representative electric service). I attest that, if there was a reasonable possibility of needing a blood transfusion, the patient (or the patient's legal sales representative electric service) was given the [facility] standardized written summary, pursuant to the Frantz Bg Blood Safety Act ([place] Health and Safety Code # 1645, as amended). I attest that I re-evaluated the patient just prior to the surgery and that there has been no change in the patient's H&P, except as documented below: WILLARD ZAVALA Sep 24, 2017 16:33
[2017-09-24] MEDS ORDERED: fentaNYL 100 mcg/2 mL IV PRN (17:30)
[2017-09-24] MEDS ORDERED: Hydromorphone 0.5mg/0.5ml inj IVP PRN ×2 (17:30→18:15)
--- NOTE | 2017-09-24 18:05 | Brief Operative Note ---
Immediate Post Operative Note Operative Note Pre-op Diagnosis: cholecystitis & cholelithiasis Procedure: Laparoscopic Cholecystectomy Post-op Diagnosis: same as pre-op Findings: consistent w/pre-op dx studies Surgeon: MD Erica Supervisor Drying: none Anesthesiologist: Viri Guadalupe CRNA Anesthesia: general Specimen: yes Complications: none Condition: stable Fluids: Per anesth. Estimated Blood Loss: minimal Drains: none Implant(s) used?: No WILLARD ZAVALA Sep 24, 2017 18:05
[2017-09-24] MEDS ORDERED: Acetaminophen 650 MG SUPP RECTAL PRN (18:15)
--- NOTE | 2017-09-24 18:19 | Anethesia Preoperative Eval ---
Anesthesia Pre-op PMH/ROS General Date of Evaluation: Sep 24, 2017 Time of Evaluation: 16:45 Anesthesiologist: sonya ASA Score: ASA 2 Mallampati Score Class I : Soft palate, uvula, fauces, pillars visible Class II: Soft palate, uvula, fauces visible Class III: Soft palate, base of uvula visible Class IV: Only hard plate visible Mallampati Classification: Class II Diagnosis: cholelithiasis Surgical Procedure: Lap Ros Anesthesia History: none Allergies: Coded Allergies: No Known Allergies (Unverified , 09/23/17) Medications: see eMAR Past Medical History Cardiovascular: Denies: HTN, CAD, RI, valve dz, arrhythmia, other Pulmonary: Reports: other - congested, a cold, low grader fever Gastrointestinal/Genitourinary: Denies: GERD, CRI, ESRD, other Neurologic/Psychiatric: Denies: dementia, CVA, depression/anxiety, TIA, other Endocrine: Denies: DM, hypothyroidism, steroids, other HEENT: Denies: cataract (L), cataract (R), glaucoma, BOIS FORTE (L), BOIS FORTE (R), other Hematology/Immune: Denies: anemia, DVT, bleeding disorder, other Musculoskeletal/Integumentary: Denies: OA, RA, DJD, DDD, edema, other Anesthesia Pre-op Phys. Exam Physician Exam Last Vital Signs Date Time Temp Pulse Resp B/P (MAP) Pulse Ox O2 Delivery O2 Flow Rate FiO2 09/24/17 16:00 98.5 70 18 105/63 96 Room Air 98.5 Constitutional: NAD Neurologic: CN 2-12 intact Respiratory: other - congested Gastrointestinal: S/NT/ND Airway Exam Mallampati Classification 2 Mallampati Score: Class II MO: full ROM: full Dentures: no upper, no lower Anesthesia Pre-op A/P Labs Hematology Test 09/24/17 06:50 White Blood Count 4.2 K/UL (4.8-10.8) L Red Blood Count 4.61 M/UL (4.20-5.40) Hemoglobin 13.8 G/DL (12.0-16.0) Hematocrit 40.9 % (37.0-47.0) Mean Corpuscular Volume 89 FL (80-99) Mean Corpuscular Hemoglobin 29.9 PG (27.0-31.0) Mean Corpuscular Hemoglobin Concent 33.7 G/DL (32.0-36.0) Red Cell Distribution Width 11.9 % (11.6-14.8) Platelet Count 186 K/UL (150-450) Mean Platelet Volume 7.3 FL (6.5-10.1) Neutrophils (%) (Auto) 71.7 % (45.0-75.0) Lymphocytes (%) (Auto) 17.3 % (20.0-45.0) L Monocytes (%) (Auto) 9.7 % (1.0-10.0) Eosinophils (%) (Auto) 0.0 % (0.0-3.0) Basophils (%) (Auto) 1.3 % (0.0-2.0) Chemistry Test 09/24/17 06:50 Sodium Level 139 MMOL/L (136-145) Potassium Level 4.3 MMOL/L (3.5-5.1) Chloride Level 106 MMOL/L (98-107) Carbon Dioxide Level 26 MMOL/L (21-32) Anion Gap 7 mmol/L (5-15) Blood Urea Nitrogen 7 mg/dL (7-18) Creatinine 0.9 MG/DL (0.55-1.30) Estimat Glomerular Filtration Rate > 60 mL/min (>60) Glucose Level 113 MG/DL (74-106) H Calcium Level 7.8 MG/DL (8.5-10.1) L Magnesium Level 2.2 MG/DL (1.8-2.4) Total Bilirubin 0.2 MG/DL (0.2-1.0) Aspartate Amino Transf (AST/SGOT) 25 U/L (15-37) Alanine Aminotransferase (ALT/SGPT) 21 U/L (12-78) Alkaline Phosphatase 70 U/L (46-116) Total Protein 7.0 G/DL (6.4-8.2) Albumin 3.3 G/DL (3.4-5.0) L Globulin 3.7 g/dL Albumin/Globulin Ratio 0.9 (1.0-2.7) L Amylase Level 69 U/L (25-115) Studies Pre-op Studies: EKG - sr Risk Assessment & Plan Plan: general Status Change Before Surgery: No Pre-Antibiotics Drug: declined by surgeon JEFFERY FONSECA CRNA 22, 2018 18:19
--- NOTE | 2017-09-24 18:20 | Immediate Post-Op Evaluation ---
Immediate Post-Op Evalulation Immediate Post-Op Evalulation Procedure: lap oliverio Date of Evaluation: Sep 24, 2017 Time of Evaluation: 18:20 IV Fluids: 1000 Blood Pressure Systolic: 115 Blood Pressure Diastolic: 71 Pulse Rate: 74 Respiratory Rate: 15 O2 Sat by Pulse Oximetry: 100 Temperature (Fahrenheit): 99.0 Pain Score (1-10): 0 Nausea: No Vomiting: No Complications none Patient Status: awake, reacts Hydration Status: adequate Drug: JEFFERY Renteria CRNA Sep 24, 2017 18:20
[2017-09-24] MEDS: ceFAZolin sod 1 GM in D5W 110 ML IV SCH (22:03)
[2017-09-24] MEDS: HYDROmorphone 1mg/ml Carpuject IVP PRN (22:07)
[2017-09-24] MEDS: Zolpidem 5mg tab ORAL PRN (23:43)
[2017-09-25] VITALS: BP 104/55
--- NOTE | 2017-09-25 00:02 | Operative Note - Dictated ---
DATE OF OPERATION: 09/24/2017 PREOPERATIVE DIAGNOSES: Cholecystitis and cholelithiasis. POSTOPERATIVE DIAGNOSES: Cholecystitis and cholelithiasis with impacted stone in the neck. OPERATION: Laparoscopic cholecystectomy. COMPLICATIONS: None. SURGEON: Stella Hopper M.D. ARMATURE TESTER: None. ANESTHESIA: General with endotracheal tube. ANESTHESIOLOGIST: Viri Guadalupe CRNA. INDICATION: This is a 27-year-old female, who presented to the emergency room complaining of abdominal pain and vomiting. Physical examination showed tenderness at the right upper quadrant. Ultrasound showed cholelithiasis with a stone in the neck of the gallbladder. The patient was admitted to the hospital and was placed on the conservative treatment, but the pain continued. So, the decision was made for laparoscopic cholecystectomy possible open cholecystectomy. DESCRIPTION OF PROCEDURE: The patient was placed supine on the operating table and after general anesthesia with endotracheal tube, the abdomen was properly prepped and draped. A small incision was given above the umbilicus through which a Veress needle was introduced into the intraperitoneal cavity. This cavity was insufflated up to 15 mmHg and then the Veress needle was removed and a 5 mm trocar was placed in the intraperitoneal cavity through the incision above the umbilicus. Laparoscope and camera was introduced into the intraperitoneal cavity through the trocar above the umbilicus and under direct vision, 5 mm trocars were placed at the right upper quadrant and right flank and a working trocar was placed at the epigastrium. Initially, a rapid exploration was performed, which showed the diaphragms to be normal. The part of the stomach that could be seen was normal. Liver was normal. Gallbladder was distended and showed signs of chronic cholecystitis. The bowels were covered with omentum and there was adhesion of the omentum to the anterior abdominal wall below the umbilicus. The fundus of the gallbladder was grasped with a grasper from the trocar site at the right flank. Fundus was retracted cephalad and lateral. The neck of the gallbladder was grasped with another grasper and Calot's triangle was exposed. Blunt dissection at this area was performed and the cystic duct was identified and isolated. The junction of the cystic duct and the gallbladder was observed and then this duct was doubly ligated with a hemoclip and was transected. The cystic artery was identified and doubly ligated with a hemoclip and was transected. After this, the gallbladder was gradually released from the gallbladder bed from the neck towards the fundus. The gallbladder was completely removed from the gallbladder bed and was removed from the intraperitoneal cavity through the incision at epigastrium. After removal of the gallbladder, the gallbladder bed was completely cauterized with the help of the Bovie and then the right upper quadrant cavity was thoroughly irrigated with antibiotic solution. Another exploration was performed and there was no bleeding or complication. The procedure was terminated and the trocars were removed under direct vision. The incisions were infiltrated with a total of 30 mL of Marcaine 0.25%. The subcutaneous tissue was approximated with 4-0 chromic and then the skin incisions were approximated with running subcuticular suture of 4-0 chromic. The patient tolerated the procedure very well and was transferred to recovery room in stable condition and extubated. The sponge and needle count correct. Estimated blood loss 20 mL. Condition of the patient at the end of the procedure is stable. Stella Hopper M.D. DR: SADIA JOB#: [id number] CC:
[2017-09-25 04:00] VITALS: BP 118/69
[2017-09-25] MEDS: ceFAZolin sod 1 GM in D5W 110 ML IV SCH (05:36)
[2017-09-25] MEDS: D5 1/2NS w/KCl 20mEq 1,000 ML IV SCH (05:37)
[2017-09-25] MEDS: HYDROmorphone 1mg/ml Carpuject IVP PRN ×2 (05:40→10:06)
[2017-09-25 07:32] LABS: HEMATOCRIT 39.4 % (37.0-47.0); HEMOGLOBIN 13.6 G/DL (12.0-16.0); MEAN CORPUSCULAR VOLUME 88 FL (80-99); PLATELET COUNT 202 K/UL (150-450); RED CELL DISTRIBUTION WIDTH 11.8 % (11.6-14.8); WHITE BLOOD COUNT 2.9 K/UL (4.8-10.8)
[2017-09-25 07:56] LABS: ALANINE AMINOTRANSFERASE 60 U/L (12-78); ALBUMIN 2.8 G/DL (3.4-5.0); ALBUMIN/GLOBULIN RATIO 0.8 (1.0-2.7); ALKALINE PHOSPHATASE 61 U/L (46-116); ANION GAP 9 mmol/L (5-15); ASPARTATE AMINO TRANSFERASE 80 U/L (15-37); BILIRUBIN,TOTAL 0.2 MG/DL (0.2-1.0); BLOOD UREA NITROGEN 9 mg/dL (7-18); CALCIUM 7.7 MG/DL (8.5-10.1); CARBON DIOXIDE 24 MMOL/L (21-32); CHLORIDE 104 MMOL/L (98-107); CREATININE 0.8 MG/DL (0.55-1.30); POTASSIUM 4.1 MMOL/L (3.5-5.1); SODIUM 137 MMOL/L (136-145)
[2017-09-25 08:00] VITALS: BP 112/65
[2017-09-25] MEDS: Docusate 100mg cap ORAL SCH (08:42)
[2017-09-25] MEDS: Piperacillin/Tazobactam 3.375 GM in NS 110 ML IVPB SCH ×2 (08:45→16:30)
[2017-09-25] MEDS ORDERED: Pantoprazole Inj IVP SCH (09:00)
--- NOTE | 2017-09-25 11:23 | 48 Hour Post Anesthesia Eval ---
Post Anesthesia Evaluation Procedure: lap oliverio Date of Evaluation: Sep 25, 2017 Time of Evaluation: 11:22 Blood Pressure Systolic: 118 0: 69 Pulse Rate: 70 Respiratory Rate: 14 O2 Sat by Pulse Oximetry: 100 Airway: patent Nausea: No Vomiting: No Hydration Status: adequate Cardiopulmonary Status: stable Mental Status/LOC: patient returned to baseline Follow-up Care/Observations: na Post-Anesthesia Complications: none Follow-up care needed: N/A JEFFERY FONSECA CRNA Sep 25, 2017 11:22
[2017-09-25 12:00] VITALS: BP 120/70
[2017-09-25 12:37] VITALS: BP 112/72
[2017-09-25] MEDS ORDERED: ONDANSETRON ODT4 MG ORAL (14:39)
[2017-09-25] MEDS ORDERED: COLACE100 MG ORAL (14:39)
--- NOTE | 2017-09-25 16:13 | General Surgery Progress Note ---
General Surgery-Progress Note Subjective Procedure Performed Laparoscopic Cholecystectomy Symptoms: improved, BM Objective Last 24 Hour Vital Signs Date Time Temp Pulse Resp B/P (MAP) Pulse Ox O2 Delivery O2 Flow Rate FiO2 09/25/17 12:37 98.2 65 112/72 96 Room Air 98.2 09/25/17 12:00 97.9 58 18 120/70 96 Room Air 97.9 09/25/17 11:22 70 14 100 09/25/17 08:00 98.6 60 20 112/65 97 Room Air 98.6 09/25/17 04:00 97.7 56 18 118/69 100 97.7 09/25/17 04:00 100 Nasal Cannula 2.0 09/25/17 00:00 97.7 53 18 104/55 99 97.7 09/25/17 00:00 99 Nasal Cannula 2.0 09/24/17 22:05 74 18 114/68 99 09/24/17 21:05 60 18 94/62 99 09/24/17 20:35 58 18 105/63 99 09/24/17 20:05 73 18 106/67 99 09/24/17 20:00 99 Nasal Cannula 2.0 09/24/17 19:50 62 18 99/66 99 09/24/17 19:35 62 18 97/67 99 09/24/17 19:20 98.2 60 18 99/52 99 Nasal Cannula 3.0 98.2 09/24/17 18:54 60 20 108/70 100 Simple Mask 8.0 09/24/17 18:41 63 20 112/70 100 Simple Mask 8.0 09/24/17 18:30 68 20 110/73 100 Simple Mask 8.0 09/24/17 18:20 73 20 114/74 100 Simple Mask 8.0 09/24/17 18:20 210.2 74 15 100 09/24/17 18:15 90 20 115/71 100 Simple Mask 8.0 09/24/17 18:10 99.0 96 20 112/75 100 Simple Mask 8.0 99.0 I&O Intake and Output 09/24/17 09/25/17 19:00 07:00 Intake Total 1000 ml 750 ml Balance 1000 ml 750 ml IV Total 1000 ml 750 ml # Voids 3 1 Respiratory: clear Abdomen: soft, flat, tenderness, present bowel sounds Extremities: no tenderness Laboratory Tests Test 09/25/17 06:30 White Blood Count 2.9 K/UL (4.8-10.8) L Red Blood Count 4.50 M/UL (4.20-5.40) Hemoglobin 13.6 G/DL (12.0-16.0) Hematocrit 39.4 % (37.0-47.0) Mean Corpuscular Volume 88 FL (80-99) Mean Corpuscular Hemoglobin 30.3 PG (27.0-31.0) Mean Corpuscular Hemoglobin Concent 34.5 G/DL (32.0-36.0) Red Cell Distribution Width 11.8 % (11.6-14.8) Platelet Count 202 K/UL (150-450) Mean Platelet Volume 7.1 FL (6.5-10.1) Neutrophils (%) (Auto) % (45.0-75.0) Lymphocytes (%) (Auto) % (20.0-45.0) Monocytes (%) (Auto) % (1.0-10.0) Eosinophils (%) (Auto) % (0.0-3.0) Basophils (%) (Auto) % (0.0-2.0) Differential Total Cells Counted 100 Neutrophils % (Manual) 71 % (45-75) Lymphocytes % (Manual) 23 % (20-45) Monocytes % (Manual) 6 % (1-10) Eosinophils % (Manual) 0 % (0-3) Basophils % (Manual) 0 % (0-2) Band Neutrophils 0 % (0-8) Platelet Estimate Adequate Platelet Morphology Normal Acanthocytes 1+ Sodium Level 137 MMOL/L (136-145) Potassium Level 4.1 MMOL/L (3.5-5.1) Chloride Level 104 MMOL/L (98-107) Carbon Dioxide Level 24 MMOL/L (21-32) Anion Gap 9 mmol/L (5-15) Blood Urea Nitrogen 9 mg/dL (7-18) Creatinine 0.8 MG/DL (0.55-1.30) Estimat Glomerular Filtration Rate > 60 mL/min (>60) Glucose Level 137 MG/DL (74-106) H Calcium Level 7.7 MG/DL (8.5-10.1) L Total Bilirubin 0.2 MG/DL (0.2-1.0) Aspartate Amino Transf (AST/SGOT) 80 U/L (15-37) H Alanine Aminotransferase (ALT/SGPT) 60 U/L (12-78) Alkaline Phosphatase 61 U/L (46-116) Total Protein 6.4 G/DL (6.4-8.2) Albumin 2.8 G/DL (3.4-5.0) L Globulin 3.6 g/dL Albumin/Globulin Ratio 0.8 (1.0-2.7) L Assessment Additional Comments S/P Lap Ros Plan Additional Comments Discharge to home WILLARD ZAVALA Sep 25, 2017 16:13
[2017-09-25 16:26] VITALS: BP 112/56
--- NOTE | 2017-09-25 16:26 | 48 Hour Post Anesthesia Eval ---
Post Anesthesia Evaluation Procedure: lap oliverio Date of Evaluation: Sep 25, 2017 Time of Evaluation: 16:24 Blood Pressure Systolic: 112 0: 56 Pulse Rate: 72 Respiratory Rate: 20 Temperature (Fahrenheit): 97.6 O2 Sat by Pulse Oximetry: 98 Airway: patent Nausea: No Vomiting: No Pain Intensity: 2 Hydration Status: adequate Cardiopulmonary Status: stable Follow-up Care/Observations: n/a Post-Anesthesia Complications: none Follow-up care needed: N/A TAYLOR ROMAN M.D. Sep 25, 2017 16:26
[2017-09-25] MEDS ORDERED: NORCO 5-325 TA1 EACH ORAL (16:43)
[2017-09-25] MEDS ORDERED: Tubing IV Secondary IV ONE (19:56)
--- NOTE | 2017-09-28 11:34 | Discharge Summary ---
Discharge Summary Hospital Course Date of Admission Sep 23, 2017 at 13:56 Date of Discharge Sep 25, 2017 at 19:57 Admitting Diagnosis fever abdominal pain HPI Nicole Young is a 27 year old female who was admitted on Sep 23, 2017 at 13:56 for Fever,Abdominal Pain Hospital Course dc summary #[id number] Discharge Medications New Medications: Docusate Sodium* (Colace*) 100 Mg Capsule 100 MG ORAL TWICE A DAY PRN, #30 CAP constipation Ondansetron Odt* (Zofran Odt*) 4 Mg Tab.rapdis 4 MG ORAL EVERY 8 HOURS PRN, #30 TAB 0 Refills nausea/vomiting Changed Medications: Hydrocodone Bit/Acetaminophen 5-325* (Horton 5-325*) 1 Each Tablet 1-2 TAB ORAL Q6H PRN for For Pain, #30 TAB 0 Refills (Changed from: 1 TAB; 10) Continued Medications: Acetaminophen* (Acetaminophen Extra Strength*) 500 Mg Tablet 500 MG ORAL Q8H PRN for Fever/Headache/Mild Pain, #30 TAB Ibuprofen* (Motrin*) 600 Mg Tablet 200 MG ORAL FOUR TIMES A DAY, #30 TAB 0 Refills (This prescription has been renewed) Discharge Condition Upon Discharge: stable Discharge Disposition Patient was discharged to Home () Discharge Instructions Discharge Instructions Special Instructions I have been assigned to complete a D/C Summary on this account. I was not involved in the patient management Alison Gonzalez NP (Vanchtein) Sep 28, 2017 11:34
--- NOTE | 2017-09-29 04:31 | Discharge Summary 2 SIG ---
DATE OF ADMISSION: 09/23/2017 DATE OF DISCHARGE: 09/25/2017 REASON FOR ADMISSION: The patient is a 27 years old female without significant past medical history, presented with fever, chills, abdominal pain, nausea, and vomiting. The patient reported fever for the last one to two days. She suddenly had onset of right upper quadrant abdominal pain with associated nausea and vomiting. Pain was described as sharp and intermittent and was described as nonbloody and nonbilious. No chest pain. No shortness of breath. No dysuria. Upon evaluation in the emergency room, the patient had abdominal ultrasound, which revealed cholelithiasis with positive sonographic Campbell sound, which raised concern for acute cholecystitis. Ultrasound was negative for dilated ducts. The patient subsequently undergone HIDA scan, which revealed patent cystic duct and negative for acute cholecystitis. The patient admitted with diagnoses cholecystitis and cholelithiasis to medical/surgical floor. The patient was NPO. The patient started on IV fluids. Pain management provided. Surgery consult was requested. The patient started on empiric antibiotic given fevers. Bowel regimen instituted. Supportive care for nausea control provided. DVT prophylaxis provided in terms of SCD. The patient was ambulatory. Liver enzymes were closely monitored. Surgeon seen and evaluated the patient. Surgeon personally reviewed abdominal ultrasound and stated that the patient had a large stone impacted in the neck of the gallbladder. HIDA scan shows considerable residual tracer within the distal distended gallbladder, but no residual hepatic retention of tracer. The patient subsequently underwent laparoscopic cholecystectomy on 09/24/2017. Course of recovery was uneventful. Pain management provided. Small incision for laparoscopic surgery clean, dry, and intact. Laboratory wilcox, the patient was stable, able to ambulate, started on clear liquid diet and advanced as tolerated. Able to tolerate fluid and diet. No nausea. No vomiting. Ambulatory without difficulty. The patient was stable for discharge. FINAL DIAGNOSES: 1. Cholelithiasis. 2. Cholecystitis. 3. Biliary colic. 4. Status post laparoscopic cholecystectomy. DISCHARGE INSTRUCTIONS: The patient discharged home. Follow up with the surgeon as recommended. DISCHARGE MEDICATIONS: See medication reconciliation list. Shamim Shakibai, M.D. I have been assigned to dictate discharge summary on this account and I was not involved in the patient's management. López George (vanchtein)PLindsey DR: MATT JOB#: [id number] CC:
== END 2017-09-25 19:57 | disposition home or self-care (01) | DRG 263 ==
LOC: EMR 12:28 → 3E 13:56 → EDBEDREQ 16:54
PROC: 0FT44ZZ Resection of Gallbladder, Percutaneous Endoscopic Approach (ICD-10-PCS; principal; 2017-09-24 17:00)
DX: K80.00 Calculus of gallbladder with acute cholecystitis without obstruction (principal)
CPT/HCPCS: 36415; 71045; 76700; 78266; 80053; 81003; 81025; 82150; 83690; 83735; 85007; 85025; 85610; 86710; 86850; 86900; 86901; 87040; 94003; 94150; 99285; J2405; J2710

== ENCOUNTER 2019-05-01 01:37 | Emergency (ER) | payer MEDICAID ==
[~2019-05-01] VITALS: Ht 154.9 cm; Wt 57.2 kg
[~2019-05-01 01:37] MED LIST: ACETAMINOPHEN500 M3 ORAL; COLACE100 MG ORAL; IBUPROFEN600 MG ORAL; NORCO 5-325 TA1 EACH ORAL; ONDANSETRON ODT4 MG ORAL
--- NOTE | 2019-05-01 02:00 | NUR ---
ED Nurse Note: PT AAOX4, VSS, NO ACUTE DISTRESS. Patient walked in to ER due to possible misscarage. PT WAS AT [facility] AND A YELLOW, RED, AND ARCHIBALD MATERIAL WAS DISCHARED.
--- NOTE | 2019-05-01 02:28 | Emergency Room Report ---
History of Present Illness General Chief Complaint: Complications Source: Patient Present Illness HPI Disclaimer: Please note that this report is being documented using Poolami[employer] technology. This can lead to erroneous entry secondary to incorrect interpretation by the dictating instrument. HPI: This is a 29-year-old female with no medical history presenting for evaluation of possible miscarriage. The patient states that she was experience some lower abdominal cramping and then passed what appeared to be abnormal tissue from her vagina earlier today. She has had intermittent bleeding after a colposcopy and biopsy secondary to an abnormal Pap smear performed 4 days ago. She denies any vaginal discharge, dysuria or hematuria. She otherwise denies any abdominal pain, nausea, vomiting, fever, chills or any other changes in her health recently. She has not missed any periods. LMP was April 06. She is on control medication. PMH: None PSH: Cholecystectomy, colposcopy Allergies: Denies Social Hx: Denies Allergies: Coded Allergies: No Known Allergies (Unverified , 09/23/17) Patient History Last Menstrual Period: 04/06/19 Nursing Documentation-PMH Past Medical History: No Stated History Hx Cardiac Problems: No Hx Cancer: No Hx Gastrointestinal Problems: No Hx Neurological Problems: No Review of Systems All Other Systems: negative except mentioned in HPI Physical Exam Vital Signs Date Time Temp Pulse Resp B/P (MAP) Pulse Ox O2 Delivery O2 Flow Rate FiO2 05/01/19 01:51 98.2 60 16 146/94 (111) 95 Room Air General: Awake and alert, no acute distress HEENT: NC/AT. EOMI. Cardiovascular: RRR. S1 and S2 normal. No murmur appreciated Resp: Normal work of breathing. No cough, wheezing or crackles appreciated Abdomen: Abdomen is soft, nondistended. Nontender Skin: Intact. No abrasions, laceration or rash over the exposed skin MSK: Normal tone and bulk. Moving all extremities. No obvious deformity. Neuro: Awake and alert. Mentating appropriately. Medical Decision Making Diagnostic Impression: Primary Impression: Vaginal bleeding Additional Impression: Elevated lipase ER Course Is a 29-year-old female presenting for evaluation of a possible miscarriage after passing what she describes as abnormal tissue earlier today. Must also evaluate for possible ectopic or this may be a post colposcopy complication. She has no complaints of pain, nausea, discomfort of any kind. She did bring a picture of what she passed and appears to be tissue of some kind but difficult to fully assess from the picture. Will obtain a pelvic ultrasound and blood work Laboratory Tests Test 05/01/19 02:28 05/01/19 02:29 Urine Color Pale yellow Urine Appearance Clear Urine pH 6 (4.5-8.0) Urine Specific [place] 1.005 (1.005-1.035) Urine Protein Negative (NEGATIVE) Urine Glucose (UA) Negative (NEGATIVE) Urine Ketones Negative (NEGATIVE) Urine Blood 5+ (NEGATIVE) H Urine Nitrite Negative (NEGATIVE) Urine Bilirubin Negative (NEGATIVE) Urine Urobilinogen Normal MG/DL (0.0-1.0) Urine Leukocyte Esterase 1+ (NEGATIVE) H Urine RBC 2-4 /HPF (0 - 2) H Urine WBC 0-2 /HPF (0 - 2) Urine Squamous Epithelial Cells Few /LPF (NONE/OCC) Urine Bacteria Occasional /HPF (NONE) White Blood Count 5.9 K/UL (4.8-10.8) Red Blood Count 4.30 M/UL (4.20-5.40) Hemoglobin 12.9 G/DL (12.0-16.0) Hematocrit 37.7 % (37.0-47.0) Mean Corpuscular Volume 88 FL (80-99) Mean Corpuscular Hemoglobin 30.0 PG (27.0-31.0) Mean Corpuscular Hemoglobin Concent 34.2 G/DL (32.0-36.0) Red Cell Distribution Width 10.8 % (11.6-14.8) L Platelet Count 295 K/UL (150-450) Mean Platelet Volume 6.3 FL (6.5-10.1) L Neutrophils (%) (Auto) 52.1 % (45.0-75.0) Lymphocytes (%) (Auto) 36.0 % (20.0-45.0) Monocytes (%) (Auto) 8.2 % (1.0-10.0) Eosinophils (%) (Auto) 2.3 % (0.0-3.0) Basophils (%) (Auto) 1.4 % (0.0-2.0) Sodium Level 142 MMOL/L (136-145) Potassium Level 3.5 MMOL/L (3.5-5.1) Chloride Level 106 MMOL/L (98-107) Carbon Dioxide Level 27 MMOL/L (21-32) Anion Gap 9 mmol/L (5-15) Blood Urea Nitrogen 10 mg/dL (7-18) Creatinine 0.7 MG/DL (0.55-1.30) Estimate Glomerular Filtration Rate > 60 mL/min (>60) Glucose Level 98 MG/DL (74-106) Calcium Level 9.1 MG/DL (8.5-10.1) Total Bilirubin 0.2 MG/DL (0.2-1.0) Aspartate Amino Transferase (AST) 18 U/L (15-37) Alanine Aminotransferase (ALT) 31 U/L (12-78) Alkaline Phosphatase 79 U/L (46-116) Total Protein 7.5 G/DL (6.4-8.2) Albumin 3.6 G/DL (3.4-5.0) Globulin 3.9 g/dL Albumin/Globulin Ratio 0.9 (1.0-2.7) L Lipase 1306 U/L (73-393) H Human Chorionic Gonadotropin, Quant 1 mIU/mL (1-6) Reevaluation Time: 03:22 Last Vital Signs Date Time Temp Pulse Resp B/P (MAP) Pulse Ox O2 Delivery O2 Flow Rate FiO2 05/01/19 01:51 98.2 60 16 146/94 (111) 95 Room Air Reevaluation Impression No evidence of retained tissue on transabdominal ultrasound. Transvaginal was not performed due to patient preference. Labs have returned largely within normal limits except for a slightly elevated lipase of the patient has no clinical signs of appendicitis and this can be followed up as an outpatient. Patient's past history of abnormal tissue may be a complication of the colposcopy she had and can be followed up by her [employer]. She states she can see them first thing Thursday morning. She will be discharged from the emergency department today to follow-up with [employer] given strict return precautions. She understands and agrees with this treatment plan was discharged. Disposition: HOME, SELF-CARE Condition: Stable Referrals: NOT CHOSEN IPA/,REFERRING (PCP) Zane Rosado MD May 01, 2019 02:28
--- NOTE | 2019-05-01 02:33 | NUR ---
ED Nurse Note: pt blood sent to lab, pt with senior lead project manager. Addendum: 05/01/19 at 0250 by SYLVIA ED Nurse Note: BLOOD AND URINE SENT TO LAB. PT WITH US TECH
[2019-05-01 02:41] LABS: BASOPHILS % (AUTO) 1.4 % (0.0-2.0); EOSINOPHILS % (AUTO) 2.3 % (0.0-3.0); HEMATOCRIT 37.7 % (37.0-47.0); HEMOGLOBIN 12.9 G/DL (12.0-16.0); MEAN CORPUSCULAR VOLUME 88 FL (80-99); MONOCYTES % (AUTO) 8.2 % (1.0-10.0); NEUTROPHILS % (AUTO) 52.1 % (45.0-75.0); PLATELET COUNT 295 K/UL (150-450); RED CELL DISTRIBUTION WIDTH 10.8 % (11.6-14.8); WHITE BLOOD COUNT 5.9 K/UL (4.8-10.8)
[2019-05-01 02:42] LABS: APPEARANCE,URINE CLEAR; BILIRUBIN, URINE NEGATIVE (NEGATIVE); COLOR,URINE PALE YELLOW; GLUCOSE, URINE (UA) NEGATIVE (NEGATIVE); KETONES,URINE NEGATIVE (NEGATIVE); LEUKOCYTE ESTERASE ,URINE 1+ (NEGATIVE); NITRITE,URINE NEGATIVE (NEGATIVE); PH,URINE 6 (4.5-8.0); PROTEIN,URINE NEGATIVE (NEGATIVE); UROBILINOGEN,URINE NORMAL MG/DL (0.0-1.0)
[2019-05-01 02:52] LABS: ANION GAP 9 mmol/L (5-15); BLOOD UREA NITROGEN 10 mg/dL (7-18); CALCIUM 9.1 MG/DL (8.5-10.1); CARBON DIOXIDE 27 MMOL/L (21-32); CHLORIDE 106 MMOL/L (98-107); CREATININE 0.7 MG/DL (0.55-1.30); POTASSIUM 3.5 MMOL/L (3.5-5.1); SODIUM 142 MMOL/L (136-145)
[2019-05-01 02:58] LABS: ALANINE AMINOTRANSFERASE 31 U/L (12-78); ALBUMIN 3.6 G/DL (3.4-5.0); ALBUMIN/GLOBULIN RATIO 0.9 (1.0-2.7); ALKALINE PHOSPHATASE 79 U/L (46-116); ASPARTATE AMINO TRANSFERASE 18 U/L (15-37); BILIRUBIN,TOTAL 0.2 MG/DL (0.2-1.0)
[2019-05-01 03:25] VITALS: BP 132/84
--- NOTE | 2019-05-01 03:25 | NUR ---
ER DISCHARGE NOTE: Patient is cleared to be discharged per ERMD, pt is aox4, on room air, with stable vital signs. pt was given dc and prescription instructions, pt was able to verbalize understanding, pt id band and iv site removed without complications. pt is able to ambulate with steady gait. pt took all belongings. Pt left with . Pt states pain is 0/10.
--- NOTE | 2019-05-01 03:54 | Diagnostic Imaging Report ---
EXAM: US Pelvis Complete, Transabdominal CLINICAL HISTORY: ABD PAIN TECHNIQUE: Real-time transabdominal pelvic ultrasound (complete) with image documentation. COMPARISON: No relevant prior studies available. FINDINGS: Uterus cervix: Tiny echogenic foci seen within the endometrium and trace fluid within the endocervical canal. Uterus measures 6.6 x 5.1 x 4. 0 cm. Endometrium measures up to 7 mm. No myometrial mass. Right ovary: Right ovary measures 3.7 x 2.7 x 2.3 cm. Normal blood flow. Left ovary: Left ovary measures 3.0 x 2.6 x 1.7 cm. Normal blood flow. Free fluid: Trace free fluid the pelvis. IMPRESSION: No acute findings.
== END 2019-05-01 03:25 | disposition home or self-care (01) ==
LOC: EMR 02:09
DX: O20.9 Hemorrhage in early pregnancy, unspecified (principal); R74.8 Abnormal levels of other serum enzymes
CPT/HCPCS: 36415; 76856; 80053; 81003; 83690; 84702; 85025; 86850; 86900; 86901; Z7502; 99284

== ENCOUNTER 2019-12-30 14:54 | Emergency (ER) | payer MEDICAID ==
[~2019-12-30] VITALS: Ht 154.9 cm; Wt 62.1 kg
--- NOTE | 2019-12-30 15:16 | Emergency Room Report ---
History of Present Illness General Chief Complaint: Complications Source: Patient, Medical Record Present Illness HPI Patient started bleeding 2 hours ago. She not passed any clots. Mainly when she wipes herself that she sees no blood. She has a low level of discomfort in her lower abdomen. She knows that she is at this time but does not know how far along. She rates the pain 4/10. She denies any fever, chills, cough, sore throat, nausea, vomiting or diarrhea. She also denies dysuria. She has a 6-year-old child. She does not know her blood type. Allergies: Coded Allergies: No Known Allergies (Unverified , 09/23/17) COVID-19 Screening Contact w/high risk pt: No Recent Travel to affected area: No Experienced COVID-19 symptoms?: No COVID-19 Testing performed FLYING I INSTRUCTOR: No Patient History Past Medical History: see triage record, other - Gallbladder disease Past Surgical History: Social History: Denies: smoking Social History Narrative Has a 6-year-old at home Last Menstrual Period: 10/10/19 Now: Yes : 2 Para: 1 Reviewed Nursing Documentation: PMH: Agreed; PSxH: Agreed Nursing Documentation-PMH Past Medical History: No History, Except For Hx Cardiac Problems: No Hx Cancer: No Hx Gastrointestinal Problems: No - gallbladder removal Hx Neurological Problems: No Review of Systems All Other Systems: negative except mentioned in HPI Physical Exam Vital Signs Date Time Temp Pulse Resp B/P (MAP) Pulse Ox O2 Delivery O2 Flow Rate FiO2 12/30/19 15:04 98.6 83 20 108/63 (78) 98 Room Air Sp02 EP Interpretation: reviewed, normal General Appearance: well appearing, no apparent distress, GCS 15 Head: normocephalic Eyes: bilateral eye normal inspection ENT: moist mucus membranes Neck: supple Respiratory: lungs clear, normal breath sounds Cardiovascular #1: regular rate, rhythm Cardiovascular #2: 2+ radial (R) Gastrointestinal: normal inspection, normal bowel sounds, non tender, no mass, non-distended Genitourinary: deferred - Deferred per ultrasound Musculoskeletal: back normal, normal range of motion, gait/station normal Neurologic: alert, oriented x3, grossly normal Medical Decision Making Diagnostic Impression: Primary Impression: Threatened miscarriage Additional Impression: UTI (urinary tract infection) Qualified Codes: N30.00 - Acute cystitis without hematuria ER Course Patient reportedly presents with vaginal bleeding. Differential includes ectopic, threatened miscarriage, complete miscarriage, urinary tract infection amongst others. Patient evaluated with ultrasound and labs. Patient was offered Tylenol and declines. The patient will be treated with IV hydration. Labs with normal H&H. CMP normal. Quant [id number]. Urinalysis suggests UTI. Blood type O positive Ultrasound as below. Discussed results with patient. Discussed treatment plan and rest with patient. Patient stable for outpatient observation and treatment. Laboratory Tests Test 12/30/19 15:15 12/30/19 15:20 Urine Color Pale yellow Urine Appearance Clear Urine pH 8 (4.5-8.0) Urine Specific [place] 1.010 (1.005-1.035) Urine Protein Negative (NEGATIVE) Urine Glucose (UA) Negative (NEGATIVE) Urine Ketones Negative (NEGATIVE) Urine Blood 3+ (NEGATIVE) H Urine Nitrite Negative (NEGATIVE) Urine Bilirubin Negative (NEGATIVE) Urine Urobilinogen Normal MG/DL (0.0-1.0) Urine Leukocyte Esterase 1+ (NEGATIVE) H Urine RBC 2-4 /HPF (0 - 2) H Urine WBC 15-20 /HPF (0 - 2) H Urine Squamous Epithelial Cells Few /LPF (NONE/OCC) Urine Bacteria Occasional /HPF (NONE) White Blood Count 8.4 K/UL (4.8-10.8) Red Blood Count 4.59 M/UL (4.20-5.40) Hemoglobin 13.8 G/DL (12.0-16.0) Hematocrit 40.2 % (37.0-47.0) Mean Corpuscular Volume 87 FL (80-99) Mean Corpuscular Hemoglobin 30.0 PG (27.0-31.0) Mean Corpuscular Hemoglobin Concent 34.4 G/DL (32.0-36.0) Red Cell Distribution Width 11.9 % (11.6-14.8) Platelet Count 260 K/UL (150-450) Mean Platelet Volume 7.0 FL (6.5-10.1) Neutrophils (%) (Auto) 67.1 % (45.0-75.0) Lymphocytes (%) (Auto) 21.8 % (20.0-45.0) Monocytes (%) (Auto) 8.8 % (1.0-10.0) Eosinophils (%) (Auto) 1.2 % (0.0-3.0) Basophils (%) (Auto) 1.1 % (0.0-2.0) Sodium Level 137 MMOL/L (136-145) Potassium Level 3.8 MMOL/L (3.5-5.1) Chloride Level 103 MMOL/L (98-107) Carbon Dioxide Level 25 MMOL/L (21-32) Anion Gap 9 mmol/L (5-15) Blood Urea Nitrogen 10 mg/dL (7-18) Creatinine 0.8 MG/DL (0.55-1.30) Estimated Glomerular Filtration Rate > 60 mL/min (>60) Glucose Level 96 MG/DL (74-106) Calcium Level 8.8 MG/DL (8.5-10.1) Total Bilirubin 0.3 MG/DL (0.2-1.0) Aspartate Amino Transferase (AST) 21 U/L (15-37) Alanine Aminotransferase (ALT) 32 U/L (12-78) Alkaline Phosphatase 75 U/L (46-116) Total Protein 7.6 G/DL (6.4-8.2) Albumin 3.7 G/DL (3.4-5.0) Globulin 3.9 g/dL Albumin/Globulin Ratio 0.9 (1.0-2.7) L Human Chorionic Gonadotropin, Quant 9166 mIU/mL (1-6) H Last Vital Signs Date Time Temp Pulse Resp B/P (MAP) Pulse Ox O2 Delivery O2 Flow Rate FiO2 12/30/19 16:43 98.6 20 108/63 98 Room Air 12/30/19 15:04 83 Status: improved Disposition: HOME, SELF-CARE Condition: Improved Scripts Nitrofurantoin Monohyd/M-Cryst* (MACROBID 100 MG*) 100 Mg Capsule 100 MG ORAL EVERY 12 HOURS, #14 CAP Prov: Henry Fuentes MD 12/30/19 Referrals: NON PHYSICIAN (PCP) Henry Fuentes MD Dec 30, 2019 15:16
--- NOTE | 2019-12-30 15:30 | NUR ---
ED Nurse Note:pt. is 6 weeks came in due to vaginal bleeding started today, VSS, blood andm urine sent to labs and IV fluids given, U/S is at bedside
[2019-12-30 15:49] LABS: ANION GAP 9 mmol/L (5-15); BLOOD UREA NITROGEN 10 mg/dL (7-18); CALCIUM 8.8 MG/DL (8.5-10.1); CARBON DIOXIDE 25 MMOL/L (21-32); CHLORIDE 103 MMOL/L (98-107); CREATININE 0.8 MG/DL (0.55-1.30); POTASSIUM 3.8 MMOL/L (3.5-5.1); SODIUM 137 MMOL/L (136-145)
[2019-12-30 15:51] LABS: BASOPHILS % (AUTO) 1.1 % (0.0-2.0); EOSINOPHILS % (AUTO) 1.2 % (0.0-3.0); HEMATOCRIT 40.2 % (37.0-47.0); HEMOGLOBIN 13.8 G/DL (12.0-16.0); LYMPHOCYTES % (AUTO) 21.8 % (20.0-45.0); MEAN CORPUSCULAR VOLUME 87 FL (80-99); MONOCYTES % (AUTO) 8.8 % (1.0-10.0); NEUTROPHILS % (AUTO) 67.1 % (45.0-75.0); PLATELET COUNT 260 K/UL (150-450); RED BLOOD COUNT 4.59 M/UL (4.20-5.40); RED CELL DISTRIBUTION WIDTH 11.9 % (11.6-14.8); WHITE BLOOD COUNT 8.4 K/UL (4.8-10.8)
[2019-12-30 15:52] LABS: APPEARANCE,URINE CLEAR; BILIRUBIN, URINE NEGATIVE (NEGATIVE); COLOR,URINE PALE YELLOW; GLUCOSE, URINE (UA) NEGATIVE (NEGATIVE); KETONES,URINE NEGATIVE (NEGATIVE); LEUKOCYTE ESTERASE ,URINE 1+ (NEGATIVE); NITRITE,URINE NEGATIVE (NEGATIVE); PH,URINE 8 (4.5-8.0); PROTEIN,URINE NEGATIVE (NEGATIVE); UROBILINOGEN,URINE NORMAL MG/DL (0.0-1.0)
[2019-12-30 15:54] LABS: ALANINE AMINOTRANSFERASE 32 U/L (12-78); ALBUMIN 3.7 G/DL (3.4-5.0); ALBUMIN/GLOBULIN RATIO 0.9 (1.0-2.7); ALKALINE PHOSPHATASE 75 U/L (46-116); ASPARTATE AMINO TRANSFERASE 21 U/L (15-37); BILIRUBIN,TOTAL 0.3 MG/DL (0.2-1.0)
[2019-12-30] MEDS ORDERED: NITROFURANTOIN100 M2 ORAL (16:32)
--- NOTE | 2019-12-30 16:40 | NUR ---
ER DISCHARGE NOTE: Patient is cleared to be discharged per ERMD, pt is aox4, on room air, with stable vital signs. pt was given dc and prescription instructions, pt was able to verbalize understanding, pt id band and iv site removed without complications. pt is able to ambulate with steady gait. pt took all belongings.
[2019-12-30 16:43] VITALS: BP 108/63
--- NOTE | 2019-12-30 18:20 | Diagnostic Imaging Report ---
EXAM: US First Trimester , Transabdominal and Transvaginal CLINICAL HISTORY: PAIN TECHNIQUE: Real-time transabdominal and transvaginal obstetrical ultrasound of the maternal pelvis and a first trimester with image documentation. Transvaginal imaging was used for better evaluation of the fetus and adnexa. COMPARISON: No relevant prior studies available. FINDINGS: Gestation: Intrauterine gestational sac with yolk sac seen, no pole noted at present. Gestational sac consistent with a 4 week 5 day . This could represent normal early or early failure. Mean gestational sac diameter 0.91 cm Placenta/amniotic fluid: Possible tiny likely clinically insignificant subchorionic fluid collection 1.2 x 0.8 cm. This can be followed on subsequent imaging. Uterus/cervix: Uterus 7.3 x 6.8 x 4.7 cm No myometrial mass. Ovaries: Right ovary 2.6 x 1.7 x 2.3 cm Left ovary 2.6 x 1.8 x 2.8 cm No mass. Free fluid: Anechoic small free fluid noted in the pelvis, likely physiologic. IMPRESSION: 1. Intrauterine gestational sac with yolk sac seen, no pole noted at present. 2. This could represent normal early or early failure. 3. Possible tiny likely clinically insignificant subchorionic fluid collection 1.2 x 0.8 cm. 4. Recommend close clinical, serologic, and imaging followup as clinically directed. 5. Gestational sac consistent with a 4 week 5 day . 6. Otherwise unremarkable study.
== END 2019-12-30 16:40 | disposition home or self-care (01) ==
LOC: EMR 15:00
DX: O20.0 Threatened abortion (principal); N30.00 Acute cystitis without hematuria; Z3A.01 Less than 8 weeks gestation of pregnancy; O23.41 Unspecified infection of urinary tract in pregnancy, first trimester; Z90.49 Acquired absence of other specified parts of digestive tract
CPT/HCPCS: 36415; 76801; 76817; 80053; 81003; 84702; 85025; 86850; 86900; 86901; 87086; 87181; 96360; Z7502; 99284